=== PATIENT | male | born 1945 | race African-American/Black ===

== ENCOUNTER 2019-09-23 12:34 | Emergency (ER) | payer BC, OTHER ==
[2019-09-23] MEDS ORDERED: LIDOCAINE 1% MPF 5 ML VIAL ONE (13:42)
--- NOTE | 2019-09-23 14:25 | RAD REPORT ---
EXAM DESCRIPTION: RAD - Hand Left 3 View - 09/23/2019 2:13 pm CLINICAL HISTORY: Hand pain, soft tissue injury COMPARISON: None. FINDINGS: No fracture, dislocation or periosteal reaction noted. No acute bone or joint finding seen . Soft tissue wound is evident near the base of the index finger. No retained foreign body. IMPRESSION: Soft tissue injury without foreign body. No acute bone finding.
[2019-09-23] MEDS ORDERED: TETANUS & DIPHTHERIA TOX,ADULT 0.5 ML VIAL ONE (14:27)
[2019-09-23] MEDS ORDERED: LIDOCAINE 1% MPF 30 ML VIAL ONE (14:48)
--- NOTE | 2019-09-23 16:28 | ER ---
Nurse's Notes [facility] Name: Ernie Yadav Age: 74 yrs Sex: Male : 1945 Arrival Date: 09/23/2019 Time: 12:37 Bed 15 Private MD: Diagnosis: Multiple superficial lacerations, left hand;Contusion of left hand Presentation: 09/23 13:08 Presenting complaint: Patient states: "I was loosening a spring and the spring got my aa5 hand". Pt c/o laceration to finger, dressing noted in triage, bleeding controlled. Transition of care: patient was not received from another setting of care. Complicating Factors: There are no complicating factors for this patient. Onset of symptoms was September 23, 2019. Risk Assessment: Do you want to hurt yourself or someone else? Patient reports no desire to harm self or others. Initial Sepsis Screen: Does the patient meet any 2 criteria? No. Patient's initial sepsis screen is negative. Does the patient have a suspected source of infection? No. Patient's initial sepsis screen is negative. Care prior to arrival: None. 13:08 Method Of Arrival: Ambulatory aa5 13:08 Acuity: GYPSY 4 aa5 Historical: - Allergies: 13:11 No Known Allergies; aa5 - PMHx: 13:11 Gout; Hypertension; Hyperlipidemia; aa5 - Immunization history:: Last tetanus immunization: unknown. - Social history:: Smoking status: Patient/guardian denies using tobacco. - Ebola Screening: : No symptoms or risks identified at this time. - Family history:: not pertinent. - Hospitalizations: : No recent hospitalization is reported. Screenin:13 Abuse screen: Denies threats or abuse. Nutritional screening: No deficits noted. tw2 Tuberculosis screening: No symptoms or risk factors identified. Fall Risk None identified. Assessment: 13:28 General: Appears in no apparent distress. well groomed, Behavior is calm, cooperative, tw2 appropriate for age. Pain: Complains of pain in left hand. Neuro: Level of Consciousness is awake, alert, obeys commands, Oriented to person, place, time, situation. Cardiovascular: Patient's skin is warm and dry. Respiratory: Airway is patent Respiratory effort is even, unlabored, Respiratory pattern is regular, symmetrical. GI: No signs and/or symptoms were reported involving the gastrointestinal system. : No signs and/or symptoms were reported regarding the genitourinary system. EENT: No signs and/or symptoms were reported regarding the EENT system. Derm: No signs and/or symptoms reported regarding the dermatologic system. Musculoskeletal: Circulation, motion, and sensation intact. Range of motion: intact in all extremities. Injury Description: Laceration sustained to palmar aspect of middle phalanx of left ring finger, palmar aspect of proximal phalanx of left ring finger, palmar aspect of proximal phalanx of left thumb and palm of left hand is jagged, bleeding moderately, pressure dressing applied. was sustained 1-2 hours ago. 14:25 Reassessment: Patient appears in no apparent distress at this time. No changes from tw2 previously documented assessment. Patient and/or family updated on plan of care and expected duration. Pain level reassessed. Patient is alert, oriented x 3, equal unlabored respirations, skin warm/dry/pink. pt reports "[facility] just [facility] and told me I was not within 5 years on my Tetanus and to go ahead and get a tetanus shot today", provider notified. 14:56 Reassessment: provider PAT Sanders at bedside at this time. tw2 16:08 Reassessment: Patient appears in no apparent distress at this time. No changes from tw2 previously documented assessment. Patient and/or family updated on plan of care and expected duration. Pain level reassessed. Patient is alert, oriented x 3, equal unlabored respirations, skin warm/dry/pink. 16:36 Reassessment: Patient appears in no apparent distress at this time. No changes from tw2 previously documented assessment. Patient and/or family updated on plan of care and expected duration. Pain level reassessed. Patient is alert, oriented x 3, equal unlabored respirations, skin warm/dry/pink. Vital Signs: 13:11 BP 168 / 63; Pulse 67; Resp 16 S; Temp 98.3(O); Pulse Ox 100% on R/A; Weight 92.99 kg aa5 (R); Height 5 ft. 8 in. (172.72 cm); Pain 8/10; 16:08 BP 152 / 80; Pulse 64; Resp 17; Pulse Ox 95% on R/A; tw2 13:11 Body Mass Index 31.17 (92.99 kg, 172.72 cm) aa5 ED Course: 12:37 Patient arrived in ED. mr 13:08 Arm band placed on. aa5 13:09 Triage completed. aa5 13:13 Loretta Mon, RN is Primary Nurse. tw2 13:14 Bed in low position. Call light in reach. tw2 13:27 Tobi Harrell MD is Attending Physician. rn 14:14 XRAY Hand LEFT 3 View In Process Unspecified. EDMS 16:09 Assist provider with laceration repair on left hand using sutures. Set up tray. tw2 Performed by Tommy STEWART Dressed with 4X4s, non adherent dressing Patient tolerated well. Patient did not have IV access during this emergency room visit. Administered Medications: 14:38 Drug: Tetanus-Diphtheria Toxoid Adult 0.5 ml {Manager Laboratory: [employer]. Exp: tw03/28/2021. Lot #: [id number]. } Route: IM; Site: right deltoid; 15:00 Follow up: Response: No adverse reaction tw2 14:46 Drug: Lidocaine (1 %) 5 mg {Note: by PAT Sanders.} Route: Infiltration; tw2 14:48 Drug: Lidocaine (1 %) 20 ml Volume: 20 ml; Route: Infiltration; tw2 Outcome: 16:27 Discharge ordered by . rn 16:36 Discharged to home ambulatory. tw2 16:36 Condition: stable 16:36 Discharge instructions given to patient, Instructed on discharge instructions, follow up and referral plans. medication usage, wound care, Demonstrated understanding of instructions, follow-up care, medications, wound care, Prescriptions given X 2. 16:37 Patient left the ED. tw2 Signatures: Dispatcher [employer] Robyn Romano mr Tobi Harrell MD MD rn Calderon, Audri RN RN aa5 Loretta Mon RN RN tw2
--- NOTE | 2019-09-23 16:28 | EDPHYS ---
Physician Documentation [facility] Name: Ernie Yadav Age: 74 yrs Sex: Male : 1945 Arrival Date: 09/23/2019 Time: 12:37 Bed 15 Private MD: ED Physician Tobi Harrell HPI: 09/23 14:09 This 74 yrs old Black Male presents to ER via Ambulatory with complaints of Laceration rn To Hand. 14:09 The patient has a laceration related to:. rn 14:09 The laceration(s) is(are) located on the left hand. Onset: The symptoms/episode rn began/occurred just prior to arrival. Associated signs and symptoms: Pertinent negatives: heavy bleeding, numbness distal to injury, suspected foreign body. The patient has not experienced similar symptoms in the past. Reports working on [employer], spring popped, had wrench in hand and struck left hand, is right handed, doesn't feel like foreign body in hand. + mild bleeding. tetanus UTD.. Historical: - Allergies: 13:11 No Known Allergies; aa5 - PMHx: 13:11 Gout; Hypertension; Hyperlipidemia; aa5 - Immunization history:: Last tetanus immunization: unknown. - Social history:: Smoking status: Patient/guardian denies using tobacco. - Ebola Screening: : No symptoms or risks identified at this time. - Family history:: not pertinent. - Hospitalizations: : No recent hospitalization is reported. ROS: 14:09 Constitutional: Negative for fever, chills, and weight loss, MS/Extremity: + left hand rn injury Skin: + multiple lacerations left hand Exam: 14:09 Constitutional: This is a well developed, well nourished patient who is awake, alert, rn and in no acute distress. MS/ Extremity: Pulses equal, no cyanosis. Neurovascular intact. Full, normal range of motion. Equal circumference. 3 lacerations to left hand: 2cm superficial laceration to dorsum left thumb, 5cm irregular superficial laceration 2nd webspace left hand, and 1cm laceration dorsum left 3rd digit. Vital Signs: 13:11 BP 168 / 63; Pulse 67; Resp 16 S; Temp 98.3(O); Pulse Ox 100% on R/A; Weight 92.99 kg aa5 (R); Height 5 ft. 8 in. (172.72 cm); Pain 8/10; 16:08 BP 152 / 80; Pulse 64; Resp 17; Pulse Ox 95% on R/A; tw2 13:11 Body Mass Index 31.17 (92.99 kg, 172.72 cm) aa5 Laceration: 15:51 Wound Repair of 4cm ( 1.6in ) subcutaneous laceration to palmar aspect of middle la1 phalanx of left ring finger. Irregularly shaped.. Minimal bleeding noted.. Distal neuro/vascular/tendon intact. Anesthesia: Local anesthetic administered with 3 mls of 1% lidocaine. Wound prep: Moderate cleansing, Wound irrigation, Copious irrigation. Skin closed with 10 4-0 Prolene using simple sutures and sterile technique. Patient tolerated well. 15:51 Wound Repair of 3cm ( 1.2in ) partial thickness laceration to dorsal aspect of proximal la1 phalanx of left thumb. Irregularly shaped.. Minimal bleeding noted.. Anesthesia: Local anesthetic administered with 3 mls of 1% lidocaine. Wound prep: Simple cleansing, Wound irrigation with saline, Copious irrigation. Skin closed with 5 4-0 Prolene using simple sutures and sterile technique. Patient tolerated well. 15:51 Wound Repair of 1.5cm ( 0.6in ) subcutaneous laceration to dorsal aspect of middle la1 phalanx of left ring finger. Linear shaped.. Distal neuro/vascular/tendon intact. Anesthesia: Local anesthetic administered with 2 mls of 1% lidocaine. Skin closed with 4-0 Prolene using simple sutures and sterile technique. Skin closed with 2 1-0 Prolene using simple sutures and sterile technique. Patient tolerated well. MDM: 13:27 Patient medically screened. rn 16:25 Differential diagnosis: superficial laceration. Data reviewed: vital signs, nurses rn notes, radiologic studies, plain films, and as a result, I will discharge patient. Test interpretation: by ED physician or midlevel provider: plain radiologic studies, Xray left hand without fracture or dislocation. Counseling: I had a detailed discussion with the patient and/or guardian regarding: the historical points, exam findings, and any diagnostic results supporting the discharge/admit diagnosis, radiology results, the need for outpatient follow up, to return to the emergency department if symptoms worsen or persist or if there are any questions or concerns that arise at home. Response to treatment: the patient's symptoms have markedly improved after treatment, and as a result, I will discharge patient. Special discussion: I discussed with the patient/guardian in detail that at this point there is no indication for admission to the hospital. It is understood, however, that if the symptoms persist or worsen the patient needs to return immediately for re-evaluation. 09/23 13:48 Order name: XRAY Hand LEFT 3 View; Complete Time: 14:34 rn 09/23 13:36 Order name: Wound Care; Complete Time: 13:38 rn 09/23 13:36 Order name: Suture Tray at Bedside; Complete Time: 13:38 rn Administered Medications: 14:38 Drug: Tetanus-Diphtheria Toxoid Adult 0.5 ml {[employer]: [employer]. Exp: tw03/28/2021. Lot #: [id number]. } Route: IM; Site: right deltoid; 15:00 Follow up: Response: No adverse reaction tw2 14:46 Drug: Lidocaine (1 %) 5 mg {Note: by PAT Sanders.} Route: Infiltration; tw2 14:48 Drug: Lidocaine (1 %) 20 ml Volume: 20 ml; Route: Infiltration; tw2 Disposition: 17:11 Co-signature as Attending Physician, Tobi Harrell MD. rn Disposition: 09/23/19 16:27 Discharged to Home. Impression: Multiple superficial lacerations, left hand, Contusion of left hand. - Condition is Stable. - Discharge Instructions: Hand Contusion, Laceration Care, Adult, Sutured Wound Care. - Prescriptions for Augmentin 875- 125 mg Oral Tablet - take 1 tablet by ORAL route every 12 hours for 10 days; 20 tablet. Ultram 50 mg Oral Tablet - take 1 tablet by ORAL route every 6 hours As needed; 20 tablet. - Medication Reconciliation Form, Thank You Letter, Antibiotic Education, Prescription Opioid Use form. - Follow up: Emergency Department; When: 14 days; Reason: Staple/Suture removal. Follow up: Private Physician; When: 2 - 3 days; Reason: Wound Recheck. - Problem is new. - Symptoms have improved. Signatures: Dispatcher [employer] EDMS Tobi Harrell MD MD rn Calderon, Audri, RN RN aa5 Tommy Vanegas FNP-C FNP-Cla1 Loretta Mon RN RN tw2 Corrections: (The following items were deleted from the chart) 16:37 16:27 09/23/2019 16:27 Discharged to Home. Impression: Multiple superficial tw2 lacerations, left hand; Contusion of left hand. Condition is Stable. Forms are Medication Reconciliation Form, Thank You Letter, Antibiotic Education, Prescription Opioid Use. Follow up: Emergency Department; When: 14 days; Reason: Staple/Suture removal. Follow up: Private Physician; When: 2 - 3 days; Reason: Wound Recheck. Problem is new. Symptoms have improved. rn
[2019-09-23 21:51] VITALS: TEMP 98.3
[2019-09-23 21:52] VITALS: BP 152/80; O2SAT 95
== END 2019-09-23 16:37 | disposition home or self-care (01) ==
LOC: ER 12:34
PROC: 0JQK0ZZ Repair Left Hand Subcutaneous Tissue and Fascia, Open Approach (ICD-10-PCS; principal; 2019-09-23)
DX: S61.412A Laceration without foreign body of left hand, initial encounter (principal); W27.8XXA Contact with other nonpowered hand tool, initial encounter; Y93.89 Activity, other specified; Y92.9 Unspecified place or not applicable; I10 Essential (primary) hypertension; Z23 Encounter for immunization
CPT/HCPCS: 90471; 90714; 99284

== ENCOUNTER 2019-09-27 10:23 | Emergency (ER) | payer OTHER ==
--- NOTE | 2019-09-27 11:31 | ER ---
Nurse's Notes [facility] Name: Ernie Yadav Age: 74 yrs Sex: Male : 1945 Arrival Date: 09/27/2019 Time: 10:25 Bed 12 Private MD: Diagnosis: Encounter for evaluation of repaired laceration Presentation: 09/27 11:00 Presenting complaint: Patient states: sutures placed to hand earlier this week, white iw discharge noted, needs recheck. Transition of care: patient was not received from another setting of care. Onset of symptoms was September 27, 2019. Risk Assessment: Do you want to hurt yourself or someone else? Patient reports no desire to harm self or others. 11:00 Acuity: GYPSY 4 iw 11:05 Initial Sepsis Screen: Does the patient meet any 2 criteria? No. Patient's initial iw sepsis screen is negative. Does the patient have a suspected source of infection? No. Patient's initial sepsis screen is negative. 11:15 Method Of Arrival: Ambulatory iw 11:35 Care prior to arrival: None. iw Triage Assessment: 11:20 General: Appears in no apparent distress. Behavior is calm. iw Historical: - Allergies: 11:16 No Known Allergies; iw - PMHx: 11:16 Gout; Hypertension; Hyperlipidemia; iw - Immunization history:: Adult Immunizations. - Social history:: Smoking status: Patient/guardian denies using tobacco. - Ebola Screening: : Patient negative for fever greater than or equal to 101.5 degrees Fahrenheit, and additional compatible Ebola Virus Disease symptoms Patient denies exposure to infectious person Patient denies travel to an Ebola-affected area in the 21 days before illness onset No symptoms or risks identified at this time. Screenin:37 Abuse screen: Denies threats or abuse. Denies injuries from another. Nutritional iw screening: No deficits noted. Tuberculosis screening: No symptoms or risk factors identified. Fall Risk None identified. Assessment: 11:20 General: Appears in no apparent distress. Pain: Denies pain. Neuro: Level of iw Consciousness is awake, alert, obeys commands, Oriented to person, place, time, situation. Cardiovascular: Patient's skin is warm and dry. Respiratory: Airway is patent Respiratory effort is even, unlabored. Derm: Musculoskeletal: Range of motion: intact in all extremities, Injury Description: sutures in place, skin appears mildly macerated between fingers. Vital Signs: 11:05 BP 145 / 65; Pulse 58; Resp 18; Pulse Ox 98% ; Weight 92.99 kg; Height 5 ft. 8 in. ms (172.72 cm); Pain 0/10; 11:05 Body Mass Index 31.17 (92.99 kg, 172.72 cm) ms ED Course: 10:25 Patient arrived in ED. mr 10:37 Marge Muñiz FNP-C is [facility]. kb 10:37 Clive Powell MD is Attending Physician. kb 11:15 Alyson Claire, RN is Primary Nurse. iw 11:16 Triage completed. iw 11:16 Arm band placed on. iw 11:35 Patient has correct armband on for positive identification. iw 11:35 No provider procedures requiring assistance completed. Patient did not have IV access iw during this emergency room visit. Administered Medications: No medications were administered Outcome: 11:30 Discharge ordered by MD. kb 11:37 Discharged to home ambulatory, with family. iw 11:37 Condition: good 11:37 Discharge instructions given to patient, family, Instructed on wound care, Demonstrated understanding of wound care. 11:38 Patient left the ED. iw Signatures: Marge Muñiz FNP-C FNP-Robyn Guadalupe mr Alyson Claire, RN RN Karen Paez
--- NOTE | 2019-09-27 11:32 | EDPHYS ---
Physician Documentation [facility] Name: Ernie Yadav Age: 74 yrs Sex: Male : 1945 Arrival Date: 09/27/2019 Time: 10:25 Bed 12 Private MD: ED Physician Clive Powell HPI: 09/27 12:02 This 74 yrs old Black Male presents to ER via Ambulatory with complaints of Wound kb Recheck. 12:02 Patient presents to ED for recheck of: laceration. The affected area is on the left kb hand. Previous treatment: The patient was initially treated 4 day(s) ago, the care was rendered at [facility], Treatment type: The patient's original treatment included sutures. Progress: The patient reports healing well, skin around laceration between second and third digit is white in color so pt was worried about infection. No infection noted. Educated to keep fingers spread open or place gauze between fingers so the area can dry out. Skin appears that it has been too moist. The patient has not experienced similar symptoms in the past. The patient has been recently seen at the [facility] Emergency Department, this week, for similar complaints. No signs of infection noted. Pt educated to allow wounds to be open to air instead of bandaged all of the time. . Historical: - Allergies: 11:16 No Known Allergies; iw - PMHx: 11:16 Gout; Hypertension; Hyperlipidemia; iw - Immunization history:: Adult Immunizations. - Social history:: Smoking status: Patient/guardian denies using tobacco. - Ebola Screening: : Patient negative for fever greater than or equal to 101.5 degrees Fahrenheit, and additional compatible Ebola Virus Disease symptoms Patient denies exposure to infectious person Patient denies travel to an Ebola-affected area in the 21 days before illness onset No symptoms or risks identified at this time. ROS: 12:01 Constitutional: Negative for fever, chills, and weight loss, ENT: Negative for injury, kb pain, and discharge, Neck: Negative for injury, pain, and swelling, Cardiovascular: Negative for chest pain, palpitations, and edema, Respiratory: Negative for shortness of breath, cough, wheezing, and pleuritic chest pain, Abdomen/GI: Negative for abdominal pain, nausea, vomiting, diarrhea, and constipation, Back: Negative for injury and pain, : Negative for injury, bleeding, discharge, and swelling, MS/Extremity: Negative for injury and deformity, Neuro: Negative for headache, weakness, numbness, tingling, and seizure. 12:01 Skin: Positive for laceration(s), of the left hand, repaired with sutures. Exam: 12:05 Constitutional: This is a well developed, well nourished patient who is awake, alert, kb and in no acute distress. Head/Face: Normocephalic, atraumatic. ENT: Nares patent. No nasal discharge, no septal abnormalities noted. Tympanic membranes are normal and external auditory canals are clear. Oropharynx with no redness, swelling, or masses, exudates, or evidence of obstruction, uvula midline. Mucous membranes moist. Neck: Trachea midline, no thyromegaly or masses palpated, and no cervical lymphadenopathy. Supple, full range of motion without nuchal rigidity, or vertebral point tenderness. No Meningismus. Chest/axilla: Normal chest wall appearance and motion. Nontender with no deformity. No lesions are appreciated. Cardiovascular: Regular rate and rhythm with a normal S1 and S2. No gallops, murmurs, or rubs. Normal PMI, no JVD. No pulse deficits. Respiratory: Lungs have equal breath sounds bilaterally, clear to auscultation and percussion. No rales, rhonchi or wheezes noted. No increased work of breathing, no retractions or nasal flaring. Abdomen/GI: Soft, non-tender, with normal bowel sounds. No distension or tympany. No guarding or rebound. No evidence of tenderness throughout. MS/ Extremity: Pulses equal, no cyanosis. Neurovascular intact. Full, normal range of motion. Neuro: Awake and alert, GCS 15, oriented to person, place, time, and situation. Cranial nerves II-XII grossly intact. Motor strength 5/5 in all extremities. Sensory grossly intact. Cerebellar exam normal. Normal gait. 12:05 Skin: Wound recheck: Suture laceration closure: the wound is healing well, the edges are well approximated, no evidence of dehiscence, no drainage, no erythema, no swelling. Vital Signs: 11:05 BP 145 / 65; Pulse 58; Resp 18; Pulse Ox 98% ; Weight 92.99 kg; Height 5 ft. 8 in. ms (172.72 cm); Pain 0/10; 11:05 Body Mass Index 31.17 (92.99 kg, 172.72 cm) ms MDM: 10:54 Patient medically screened. kb 11:29 Data reviewed: vital signs, nurses notes. Data interpreted: Pulse oximetry: on room air kb is 98 %. Interpretation: normal. Counseling: I had a detailed discussion with the patient and/or guardian regarding: the historical points, exam findings, and any diagnostic results supporting the discharge/admit diagnosis, the need for outpatient follow up, a family practitioner, to return to the emergency department if symptoms worsen or persist or if there are any questions or concerns that arise at home. Administered Medications: No medications were administered Disposition: 16:46 Co-signature as Attending Physician, Clive Powell MD I agree with the assessment and kdr plan of care. Disposition: 09/27/19 11:30 Discharged to Home. Impression: Encounter for evaluation of repaired laceration . - Condition is Stable. - Discharge Instructions: Laceration Care, Adult, Mhyl-[id number]-Drwa. - Medication Reconciliation Form, Thank You Letter, Antibiotic Education, Prescription Opioid Use form. - Follow up: Emergency Department; When: As needed; Reason: Worsening of condition. Follow up: Private Physician; When: 2 - 3 days; Reason: Recheck today's complaints, Continuance of care, Re-evaluation by your physician. Signatures: Marge Muñiz, TRUST ADVISOR-C TRUST ADVISOR-Ckb Clive Powell MD MD kdr Alyson Claire RN RN iw Corrections: (The following items were deleted from the chart) 11:38 11:30 09/27/2019 11:30 Discharged to Home. Impression: Encounter for evaluation of iw repaired laceration . Condition is Stable. Forms are Medication Reconciliation Form, Thank You Letter, Antibiotic Education, Prescription Opioid Use. Follow up: Emergency Department; When: As needed; Reason: Worsening of condition. Follow up: Private Physician; When: 2 - 3 days; Reason: Recheck today's complaints, Continuance of care, Re-evaluation by your physician. kb
[2019-09-27 13:12] VITALS: BP 145/65; O2SAT 98
== END 2019-09-27 11:38 | disposition home or self-care (01) ==
LOC: ER 10:23
DX: S61.412D Laceration without foreign body of left hand, subsequent encounter (principal); I10 Essential (primary) hypertension
CPT/HCPCS: 99281

== ENCOUNTER 2019-10-03 09:48 | Emergency (ER) | payer OTHER ==
--- NOTE | 2019-10-03 11:31 | ER ---
Nurse's Notes [facility] Name: Ernie Yadav Age: 74 yrs Sex: Male : 1945 Arrival Date: 10/03/2019 Time: 09:51 Bed 25 Private MD: Diagnosis: Encounter for removal of sutures Presentation: 10/03 10:20 Presenting complaint: Patient states: Pt is here to have sutures removed from L hand. ss Sutures were placed in L hand 10 days ago in ED. Pt has no complaints at this time. Transition of care: patient was not received from another setting of care. Onset of symptoms was September 23, 2019. Risk Assessment: Do you want to hurt yourself or someone else? Patient reports no desire to harm self or others. Initial Sepsis Screen: Does the patient meet any 2 criteria? No. Patient's initial sepsis screen is negative. Does the patient have a suspected source of infection? No. Patient's initial sepsis screen is negative. Care prior to arrival: None. 10:20 Method Of Arrival: Ambulatory ss 10:20 Acuity: GYPSY 5 ss Historical: - Allergies: 10:23 No Known Allergies; ss - PMHx: 10:23 Gout; Hyperlipidemia; Hypertension; ss - Immunization history:: Adult Immunizations up to date. - Social history:: Smoking status: Patient/guardian denies using tobacco. - Ebola Screening: : Patient denies exposure to infectious person Patient denies travel to an Ebola-affected area in the 21 days before illness onset. Screenin:26 Abuse screen: Denies threats or abuse. Denies injuries from another. Nutritional ss screening: No deficits noted. Tuberculosis screening: No symptoms or risk factors identified. Never had TB. Fall Risk None identified. Assessment: 10:26 General: Appears in no apparent distress. comfortable. Pain: Denies pain. Neuro: Level ss of Consciousness is awake, alert, obeys commands, Oriented to person, place, time, situation. Cardiovascular: Pulses are palpable in right radial artery and left radial artery. Respiratory: Respiratory effort is even, unlabored. GI: No signs and/or symptoms were reported involving the gastrointestinal system. EENT: No signs and/or symptoms were reported regarding the EENT system. Derm: Skin is intact, is healthy with good turgor, Skin is pink, warm \T\ dry. normal. Musculoskeletal: Circulation, motion, and sensation intact. Range of motion: intact in all extremities. Vital Signs: 10:23 BP 151 / 77; Pulse 57; Resp 16; Temp 98.3(O); Pulse Ox 98% on R/A; Pain 0/10; ss ED Course: 09:51 Patient arrived in ED. mr 10:16 Jayden Mcgrath PA is PHCP. [facility] 10:16 Clive Powell MD is Attending Physician. [facility] 10:22 Triage completed. ss 10:23 Arm band placed on right wrist. ss 10:26 Cherri Kendall, ZACK is Primary Nurse. ss 10:26 Patient has correct armband on for positive identification. Bed in low position. ss 10:27 Patient did not have IV access during this emergency room visit. ss 11:05 No provider procedures requiring assistance completed. Removal of Removed sutures from ss L hand Suture site is well healed Patient tolerated well. Administered Medications: No medications were administered Outcome: 11:15 Condition: good ss 11:15 Instructed on wound care. 11:30 Discharge ordered by . [facility] 11:34 Discharged to home ambulatory. ss 11:35 Patient left the ED. ss Signatures: Jayden Mcgrath PA PA jmm Kendall Robyn mr Cherri Kendall, RN RN ss
--- NOTE | 2019-10-03 11:32 | EDPHYS ---
Physician Documentation [facility] Name: Ernie Yadav Age: 74 yrs Sex: Male : 1945 Arrival Date: 10/03/2019 Time: 09:51 Bed 25 Private MD: ED Physician Clive Powell HPI: 10/03 11:17 This 74 yrs old Black Male presents to ER via Ambulatory with complaints of Suture jmm Removal. 11:17 The patient has sutures on the left hand. The patient has not experienced similar jmm symptoms in the past. 11:18 This is a 74 year old male with no chronic medical conditions that presents to the ED jmm with no complaints. Patient had sutures on the left hand placed on Sep 23. Patient denies fever, chills. . Historical: - Allergies: 10:23 No Known Allergies; ss - PMHx: 10:23 Gout; Hyperlipidemia; Hypertension; ss - Immunization history:: Adult Immunizations up to date. - Social history:: Smoking status: Patient/guardian denies using tobacco. - Ebola Screening: : Patient denies exposure to infectious person Patient denies travel to an Ebola-affected area in the 21 days before illness onset. ROS: 11:18 Constitutional: Negative for fever, chills, and weight loss, Cardiovascular: Negative jmm for chest pain, palpitations, and edema, Respiratory: Negative for shortness of breath, cough, wheezing, and pleuritic chest pain. 11:18 Skin: Positive for laceration(s). 11:18 All other systems are negative. Exam: 11:18 Constitutional: This is a well developed, well nourished patient who is awake, alert, jmm and in no acute distress. Head/Face: atraumatic. Eyes: EOMI, no conjunctival erythema appreciated ENT: Moist Mucus Membranes Neck: Trachea midline, Supple Chest/axilla: Normal chest wall appearance and motion. Cardiovascular: Regular rate and rhythm. No edema appreciated Respiratory: Normal respirations, no respiratory distress appreciated Abdomen/GI: Non distended, soft Back: Normal ROM 11:18 Neuro: Awake and alert, normal gait Psych: Behavior is normal, Mood is normal, Patient is cooperative and pleasant 11:18 Skin: no purulent drainage noted to the left hand, partial dehiscence noted to the 2nd web space. No bleeding appreciated. Vital Signs: 10:23 BP 151 / 77; Pulse 57; Resp 16; Temp 98.3(O); Pulse Ox 98% on R/A; Pain 0/10; ss Procedures: 11:18 Suture/Staple removal: Removed 18 sutures, from left hand, site appears partial jmm dehiscence at 2nd web space. otherwise well healing, Patient tolerated well. MDM: 10:51 Patient medically screened. [facility] 11:18 Data reviewed:. Data reviewed: vital signs, nurses notes. Counseling: I had a detailed [facility] discussion with the patient and/or guardian regarding: the historical points, exam findings, and any diagnostic results supporting the discharge/admit diagnosis, the need for outpatient follow up, to return to the emergency department if symptoms worsen or persist or if there are any questions or concerns that arise at home. ED course: Patient advised to follow up with PCP and otherwise given strict return precautions. Patient was advised he may need to go to wound care due to dehiscence. . Administered Medications: No medications were administered Disposition: 13:40 Co-signature as Attending Physician, Clive Powell MD I agree with the assessment and kdr plan of care. Disposition: 10/03/19 11:30 Discharged to Home. Impression: Encounter for removal of sutures. - Condition is Stable. - Discharge Instructions: Suture Removal, Care After. - Medication Reconciliation Form, Thank You Letter, Antibiotic Education, Prescription Opioid Use form. - Follow up: Private Physician; When: 2 - 3 days; Reason: Recheck today's complaints, Continuance of care, Re-evaluation by your physician. Signatures: Clive Powell MD MD [facility] Jayden Mcgrath PA PA jmm Smirch, Shelby, RN RN ss Corrections: (The following items were deleted from the chart) 11:35 11:30 10/03/2019 11:30 Discharged to Home. Impression: Encounter for removal of ss sutures. Condition is Stable. Forms are Medication Reconciliation Form, Thank You Letter, Antibiotic Education, Prescription Opioid Use. Follow up: Private Physician; When: 2 - 3 days; Reason: Recheck today's complaints, Continuance of care, Re-evaluation by your physician. bishop
[2019-10-03 12:05] VITALS: BP 151/77; TEMP 98.3; O2SAT 98
== END 2019-10-03 11:35 | disposition home or self-care (01) ==
LOC: ER 09:48
DX: Z48.02 Encounter for removal of sutures (principal)
CPT/HCPCS: 99281